=== PATIENT | male | born 1960 | race African-American/Black ===

== ENCOUNTER 2020-06-28 04:10 | Inpatient (IN) | payer MEDICAID, OTHER ==
[~2020-06-28] VITALS: Ht 188 cm; Wt 141.5 kg
[2020-06-28] MEDS ORDERED: ONDANSETRON HCL 4MG/2ML INJ IV STA (04:42)
[2020-06-28] MEDS: PIPERACILLIN/TAZ 3.375G PREMIX 50 ML IV ONE ×2 (04:45→08:18)
[2020-06-28] MEDS ORDERED: HYDRALAZINE 20MG/ML VIAL IV ONE (04:45)
[2020-06-28] MEDS ORDERED: VANCOMYCIN 1 G PREMIX 200 ML IV ONE (04:45)
[2020-06-28] MEDS ORDERED: SODIUM CHLORIDE 0.9% 1000ML BAG (SEPSIS BOLUS) IV ONE (04:45)
[2020-06-28] MEDS ORDERED: PROPOFOL 10MG/ML 100ML 100 ML IV SCH (04:45)
[2020-06-28] MEDS ORDERED: PROPOFOL 200MG/20ML VIAL IV ONE (05:00)
[2020-06-28 05:48] LABS: BG BASE EXCESS -7.3 mmol/L (-2.0-2.0); BG DEOXYHEMOGLOBIN 0.3 % (0.0-5.0); BG FRACTION INSPIRED OXYGEN 100; BG HCO3 ACT 17.3 mmol/L (22.0-26.0); BG METHEMOGLOBIN 0.3 % (0.0-1.5); BG OXYGEN SATURATION 99.7 % (92.0-98.5); BG OXYHEMOGLOBIN 99.4 % (94.0-97.0); BG PCO2 32.3 mmHg (35.0-45.0); BG PH 7.346 (7.350-7.450); BG PO2 502.3 mmHg (75.0-100.0); BG SAMPLE SITE RIGHT RADIAL; BG TIDAL VOLUME(mL) 550 mL; BG TOTAL HEMOGLOBIN 12.6 g/dL (12.0-18.0); BG VENT MODE VENT - A/C; BG VENT RATE 18 set
[2020-06-28 06:41] LABS: CLARITY URINE CLEAR (CLEAR); COLOR URINE YELLOW (YELLOW); KETONES URINE 1+ (NEGATIVE); LEUKOCYTE ESTERASE URINE NEGATIVE (NEGATIVE); NITRITE URINE NEGATIVE (NEGATIVE); OCCULT BLOOD URINE 2+ (NEGATIVE); PROTEIN URINE 4+ (NEGATIVE); SPECIFIC GRAVITY URINE 1.024 (1.005-1.030); UROBILINOGEN URINE 0.2 E.U./dL (0.2-1.0)
[2020-06-28 06:42] LABS: HEMATOCRIT. 39.7 % (42.0-52.0); HEMOGLOBIN. 12.9 g/dL (14.0-18.0); MEAN CORPUSCULAR HEMOGLOBIN 27.4 pg (28.0-32.0); MEAN CORPUSCULAR VOLUME 83.9 fL (80.0-94.0); MEAN PLATELET VOLUME 10.2 fl (7.4-10.4); PLATELET 228 x1000/uL (130-400); RED BLOOD CELL COUNT 4.73 mill/uL (4.7-6.1); RED CELL DISTRIBUTION WIDTH 15.4 % (11.6-14.6)
[2020-06-28 06:47] LABS: CHLORIDE 97 mEq/L (98-107)
[2020-06-28 06:51] LABS: ETHANOL BLOOD < 10 mg/dL
[2020-06-28 06:54] LABS: PROTHROMBIN TIME 10.5 sec (9.6-11.0)
[2020-06-28 06:55] LABS: CREATINE KINASE 414 IU/L (39-308)
[2020-06-28] MEDS ORDERED: ASPIRIN 300MG SUPP PR SCH (07:15)
[2020-06-28] MEDS ORDERED: INSULIN LISPRO 100 UNITS/ML SUBCUT SCH (07:15)
[2020-06-28 07:31] LABS: *COCAINE SCREEN URINE NEGATIVE (NEGATIVE); METHADONE URINE SCREEN NEGATIVE (NEGATIVE)
[2020-06-28 07:32] LABS: *BARBITURATES SCREEN URINE NEGATIVE (NEGATIVE); *BENZODIAZEPINES SCREEN URINE NEGATIVE (NEGATIVE); CANNABINOID URINE SCREEN NEGATIVE (NEGATIVE); OPIATES URINE SCREEN NEGATIVE (NEGATIVE); PHENCYCLIDINE URINE SCREEN NEGATIVE (NEGATIVE)
[2020-06-28 07:33] LABS: *AMPHETAMINES SCREEN URINE NEGATIVE (NEGATIVE)
[2020-06-28] MEDS ORDERED: GUAIFENESIN 200MG/10ML SUGAR FREE UDC PO PRN (08:15)
[2020-06-28] MEDS ORDERED: CLONIDINE 0.1MG TABLET PO PRN (08:15)
[2020-06-28] MEDS ORDERED: DEXTROSE 50% WATER 50ML SYRINGE IV PRN (08:15)
[2020-06-28] MEDS ORDERED: ONDANSETRON HCL 4MG/2ML INJ IV PRN (08:15)
[2020-06-28] MEDS ORDERED: LORAZEPAM 2MG/ML CPJ IV PRN (08:15)
[2020-06-28] MEDS ORDERED: ACETAMINOPHEN 325MG TABLET PO PRN (08:15)
[2020-06-28] MEDS ORDERED: MAGNESIUM/ALUMINUM HYDROXIDE/SIMETHICONE 30ML UDC PO PRN (08:15)
[2020-06-28] MEDS ORDERED: HYDROCODONE/ACETAMINOPHEN 10/325MG TABLET PO PRN (08:15)
[2020-06-28] MEDS ORDERED: MORPHINE SULFATE 2 MG/ML CPJ (NOT FOR IM USE) IV PRN (08:15)
[2020-06-28] MEDS: CEFTRIAXONE 1 G PREMIX 50 ML IV SCH ×2 (08:16→09:49)
[2020-06-28 08:30] LABS: PLATELET ESTIMATE NORMAL
[2020-06-28] MEDS: HYDRALAZINE 20MG/ML VIAL IV PRN (08:37)
[2020-06-28] MEDS: ENOXAPARIN 40MG/0.4ML SYR SUBCUT SCH (08:44)
[2020-06-28] MEDS: BLOOD SUGAR DIAGNOSTIC STRIP TEST SCH ×4 (09:11→21:31)
[2020-06-28] MEDS: INSULIN LISPRO 100 UNITS/ML SUBCUT SCH ×4 (09:15→21:46)
[2020-06-28] MEDS ORDERED: FENTANYL CITRATE/PF 1,000 MCG in SODIUM CHLORIDE 0.9% 80 ML IV PRN (10:45)
[2020-06-28] MEDS: AZITHROMYCIN 500 MG in DEXT 5% WATER 250 ML IV SCH (10:57)
[2020-06-28] MEDS: FENTANYL CITRATE/PF 1,000 MCG in SODIUM CHLORIDE 0.9% 80 ML IV PRN (10:58)
[2020-06-28] MEDS: NICARDIPINE 40MG/200ML PREMIX 200 ML IV PRN ×2 (13:50→18:27)
[2020-06-28] MEDS: SODIUM CHLORIDE 0.9% INJ 3ML FLUSH IVF SCH (14:00)
[2020-06-28 17:09] LABS: PHOSPHORUS 2.5 mg/dL (2.5-4.9)
[2020-06-28 17:28] LABS: HEPATITIS B SURFACE ANTIGEN NEGATIVE
[2020-06-29 04:36] LABS: BASOPHILS % 0.4 % (0.0-2.0); EOSINOPHILS % 0.1 % (0.0-5.0); HEMATOCRIT. 35.9 % (42.0-52.0); HEMOGLOBIN. 11.7 g/dL (14.0-18.0); LYMPHOCYTES % 13.1 % (20.0-50.0); MEAN CORPUSCULAR HEMOGLOBIN 27.4 pg (28.0-32.0); MEAN CORPUSCULAR VOLUME 83.8 fL (80.0-94.0); MONOCYTES % 7.4 % (2.0-8.0); PLATELET 195 x1000/uL (130-400); RED BLOOD CELL COUNT 4.29 mill/uL (4.7-6.1); RED CELL DISTRIBUTION WIDTH 15.5 % (11.6-14.6)
[2020-06-29 04:57] LABS: CHLORIDE 111 mEq/L (98-107)
[2020-06-29 05:10] LABS: CREATINE KINASE 334 IU/L (39-308)
[2020-06-29 05:12] LABS: CREATINE KINASE MB FRACTION 1.6 ng/mL (0.5-3.6)
[2020-06-29] MEDS: HYDRALAZINE 20MG/ML VIAL IV PRN ×2 (05:14→14:24)
[2020-06-29] MEDS: INSULIN LISPRO 100 UNITS/ML SUBCUT SCH ×3 (06:51→16:58)
[2020-06-29] MEDS ORDERED: PROPOFOL 10MG/ML 100ML 100 ML IV ONE ×2 (07:45→07:46)
[2020-06-29] MEDS: SODIUM CHLORIDE 0.9% INJ 3ML FLUSH IVF SCH ×4 (07:59→22:00)
[2020-06-29] MEDS: BLOOD SUGAR DIAGNOSTIC STRIP TEST SCH ×3 (07:59→16:57)
[2020-06-29] MEDS: NICARDIPINE 50 MG in SODIUM CHLORIDE 0.9% 250 ML IV PRN ×4 (08:20→18:21)
[2020-06-29 09:34] LABS: BG BASE EXCESS -6.5 mmol/L (-2.0-2.0); BG CARBOXYHEMOGLOBIN 0.5 % (0.5-1.5); BG DEOXYHEMOGLOBIN 2.7 % (0.0-5.0); BG FRACTION INSPIRED OXYGEN 40; BG HCO3 ACT 17.9 mmol/L (22.0-26.0); BG METHEMOGLOBIN 0.1 % (0.0-1.5); BG OXYGEN SATURATION 97.3 % (92.0-98.5); BG OXYHEMOGLOBIN 96.7 % (94.0-97.0); BG PCO2 32.2 mmHg (35.0-45.0); BG PH 7.363 (7.350-7.450); BG PO2 97.7 mmHg (75.0-100.0); BG SAMPLE SITE RIGHT RADIAL; BG TIDAL VOLUME(mL) 550 mL; BG TOTAL HEMOGLOBIN 12.1 g/dL (12.0-18.0); BG VENT MODE VENT - A/C; BG VENT RATE 18 set
[2020-06-29] MEDS ORDERED: INSULIN GLARGINE UD 100 UNITS/ML SYR SUBCUT SCH ×2 (10:00→21:00)
[2020-06-29] MEDS: METOPROLOL TARTRATE 25MG TABLET PO SCH (10:00)
[2020-06-29] MEDS ORDERED: INSULIN LISPRO 100 UNITS/ML SUBCUT SCH (11:00)
[2020-06-29] MEDS: ENOXAPARIN 40MG/0.4ML SYR SUBCUT SCH (11:18)
[2020-06-29] MEDS: CEFTRIAXONE 1 G PREMIX 50 ML IV SCH (11:18)
[2020-06-29] MEDS: FENTANYL CITRATE/PF 1,000 MCG in SODIUM CHLORIDE 0.9% 80 ML IV PRN (11:29)
[2020-06-29] MEDS: AZITHROMYCIN 500 MG in DEXT 5% WATER 250 ML IV SCH (12:20)
[2020-06-29] MEDS ORDERED: INSULIN REGULAR (HUMULIN R) 300UNITS/3ML SUBCUT SCH (21:00)
[2020-06-30] VITALS (44 sets, daily range): BP systolic 149–212; BP diastolic 59–121
[2020-06-30] MEDS: LORAZEPAM 2MG/ML CPJ IV PRN ×3 (00:27→22:43)
[2020-06-30] MEDS: NICARDIPINE 50 MG in SODIUM CHLORIDE 0.9% 250 ML IV PRN ×5 (02:16→23:35)
[2020-06-30] MEDS: HYDRALAZINE 20MG/ML VIAL IV PRN ×4 (04:31→20:00)
[2020-06-30] MEDS: SODIUM CHLORIDE 0.9% INJ 3ML FLUSH IVF SCH ×3 (06:00→22:00)
[2020-06-30] MEDS: BLOOD SUGAR DIAGNOSTIC STRIP TEST SCH ×3 (06:29→17:30)
[2020-06-30] MEDS: INSULIN LISPRO 100 UNITS/ML SUBCUT SCH ×3 (06:34→17:40)
[2020-06-30] MEDS: METOPROLOL TARTRATE 25MG TABLET PO SCH ×2 (09:00→21:43)
[2020-06-30] MEDS: AZITHROMYCIN 500 MG in DEXT 5% WATER 250 ML IV SCH (09:00)
[2020-06-30 09:28] LABS: BG BASE EXCESS -6.5 mmol/L (-2.0-2.0); BG CARBOXYHEMOGLOBIN 0.3 % (0.5-1.5); BG DEOXYHEMOGLOBIN 5.1 % (0.0-5.0); BG FRACTION INSPIRED OXYGEN 40; BG METHEMOGLOBIN 0.3 % (0.0-1.5); BG OXYGEN SATURATION 94.9 % (92.0-98.5); BG OXYHEMOGLOBIN 94.3 % (94.0-97.0); BG PCO2 32.7 mmHg (35.0-45.0); BG PH 7.359 (7.350-7.450); BG PO2 79.3 mmHg (75.0-100.0); BG SAMPLE SITE RIGHT RADIAL; BG TIDAL VOLUME(mL) 550 mL; BG TOTAL HEMOGLOBIN 12.4 g/dL (12.0-18.0); BG VENT MODE VENT - A/C; BG VENT RATE 14 set
[2020-06-30] MEDS ORDERED: INSULIN GLARGINE UD 100 UNITS/ML SYR SUBCUT SCH (10:00)
[2020-06-30] MEDS: INSULIN GLARGINE UD 100 UNITS/ML SYR SUBCUT SCH ×2 (10:00→23:09)
[2020-06-30] MEDS: CEFTRIAXONE 1 G PREMIX 50 ML IV SCH (10:00)
[2020-06-30] MEDS: FENTANYL CITRATE/PF 1,000 MCG in SODIUM CHLORIDE 0.9% 80 ML IV PRN ×2 (10:33→16:00)
[2020-06-30] MEDS: MIDAZOLAM HCL 100 MG in DEXT 5% WATER 100 ML IV PRN (12:35)
[2020-06-30] MEDS: ENOXAPARIN 40MG/0.4ML SYR SUBCUT SCH (13:13)
[2020-06-30] MEDS: HYDRALAZINE HCL 50MG TABLET PO SCH ×2 (13:49→22:41)
[2020-06-30] MEDS: PANTOPRAZOLE SODIUM 40 MG/VIAL IV SCH (14:22)
[2020-06-30] MEDS: DIPHENHYDRAMINE 50MG/ML VIAL IV PRN (14:36)
[2020-06-30 14:48] LABS: BASOPHILS % 0.4 % (0.0-2.0); HEMATOCRIT. 33.6 % (42.0-52.0); LYMPHOCYTES % 10.8 % (20.0-50.0); MEAN CORPUSCULAR HEMOGLOBIN 27.6 pg (28.0-32.0); MEAN CORPUSCULAR VOLUME 84.3 fL (80.0-94.0); MEAN PLATELET VOLUME 9.8 fl (7.4-10.4); MONOCYTES % 7.7 % (2.0-8.0); NEUTROPHILS % 79.1 % (40.0-76.0); PLATELET 181 x1000/uL (130-400); RED BLOOD CELL COUNT 3.99 mill/uL (4.7-6.1); RED CELL DISTRIBUTION WIDTH 15.7 % (11.6-14.6)
[2020-06-30] MEDS: THIAMINE HCL 100MG TABLET PO SCH (15:15)
[2020-06-30] MEDS: CLONIDINE 0.2MG TABLET PO PRN (17:49)
[2020-06-30] MEDS: ATORVASTATIN CALCIUM 40MG TABLET PO SCH ×2 (21:42→21:49)
[2020-06-30] MEDS: CLONIDINE 0.2MG TABLET NG SCH (23:50)
[2020-07-01] VITALS (91 sets, daily range): BP systolic 130–201; BP diastolic 57–88
[2020-07-01] MEDS: MIDAZOLAM HCL 100 MG in DEXT 5% WATER 100 ML IV PRN ×2 (00:23→12:27)
[2020-07-01] MEDS: INSULIN LISPRO 100 UNITS/ML SUBCUT SCH ×4 (00:58→18:01)
[2020-07-01] MEDS: NICARDIPINE 50 MG in SODIUM CHLORIDE 0.9% 250 ML IV PRN ×3 (03:26→11:00)
[2020-07-01] MEDS: FENTANYL CITRATE/PF 1,000 MCG in SODIUM CHLORIDE 0.9% 80 ML IV PRN ×3 (03:32→23:27)
[2020-07-01] MEDS: SODIUM CHLORIDE 0.9% INJ 3ML FLUSH IVF SCH ×3 (06:00→22:00)
[2020-07-01] MEDS: BLOOD SUGAR DIAGNOSTIC STRIP TEST SCH ×4 (06:00→17:54)
[2020-07-01 06:22] LABS: BASOPHILS % 0.4 % (0.0-2.0); EOSINOPHILS % 3.2 % (0.0-5.0); HEMATOCRIT. 32.3 % (42.0-52.0); HEMOGLOBIN. 10.5 g/dL (14.0-18.0); LYMPHOCYTES % 11.6 % (20.0-50.0); MEAN CORPUSCULAR HEMOGLOBIN 27.6 pg (28.0-32.0); MEAN CORPUSCULAR VOLUME 84.8 fL (80.0-94.0); MEAN PLATELET VOLUME 9.9 fl (7.4-10.4); MONOCYTES % 8.8 % (2.0-8.0); PLATELET 161 x1000/uL (130-400); RED BLOOD CELL COUNT 3.82 mill/uL (4.7-6.1); RED CELL DISTRIBUTION WIDTH 15.7 % (11.6-14.6)
[2020-07-01] MEDS: HYDRALAZINE HCL 50MG TABLET PO SCH (07:16)
[2020-07-01 07:58] LABS: BG BASE EXCESS -5.4 mmol/L (-2.0-2.0); BG CARBOXYHEMOGLOBIN 0.4 % (0.5-1.5); BG DEOXYHEMOGLOBIN 1.9 % (0.0-5.0); BG FRACTION INSPIRED OXYGEN 40; BG HCO3 ACT 20.8 mmol/L (22.0-26.0); BG METHEMOGLOBIN 0.3 % (0.0-1.5); BG OXYGEN SATURATION 98.1 % (92.0-98.5); BG OXYHEMOGLOBIN 97.4 % (94.0-97.0); BG PCO2 42.9 mmHg (35.0-45.0); BG PH 7.304 (7.350-7.450); BG PO2 118.4 mmHg (75.0-100.0); BG SAMPLE SITE RIGHT RADIAL; BG TIDAL VOLUME(mL) 550 mL; BG TOTAL HEMOGLOBIN 15.3 g/dL (12.0-18.0); BG VENT MODE VENT - A/C; BG VENT RATE 14 set
[2020-07-01] MEDS: ENOXAPARIN 40MG/0.4ML SYR SUBCUT SCH (09:23)
[2020-07-01] MEDS: PANTOPRAZOLE SODIUM 40 MG/VIAL IV SCH (09:23)
[2020-07-01] MEDS: THIAMINE HCL 100MG TABLET PO SCH ×2 (09:23→18:01)
[2020-07-01] MEDS: CLONIDINE 0.2MG TABLET NG SCH ×2 (09:24→23:40)
[2020-07-01] MEDS: METOPROLOL TARTRATE 25MG TABLET PO SCH (09:24)
[2020-07-01] MEDS: AMLODIPINE 10MG TABLET PO SCH (10:41)
[2020-07-01] MEDS: HYDRALAZINE 20MG/ML VIAL IV PRN ×2 (10:41→16:55)
[2020-07-01] MEDS: INSULIN GLARGINE UD 100 UNITS/ML SYR SUBCUT SCH ×2 (10:42→22:18)
[2020-07-01] MEDS: AZITHROMYCIN 500 MG in DEXT 5% WATER 250 ML IV SCH (10:49)
[2020-07-01] MEDS: CEFTRIAXONE 1,000 MG in DEXTROSE 5% WATER 50 ML IV SCH (10:49)
[2020-07-01] MEDS ORDERED: FUROSEMIDE 40MG/4ML VIAL IVP NR (11:00)
[2020-07-01] MEDS: CLONIDINE 0.2MG TABLET PO PRN (12:31)
[2020-07-01] MEDS: HYDRALAZINE HCL 100MG TABLET NG SCH ×2 (14:15→22:36)
[2020-07-01 19:09] LABS: ANTI-NUCLEAR ANTIBODIES DIRECT Negative (Negative)
[2020-07-01] MEDS: LABETALOL 5MG/ML SYR 20 MG/4 ML SYRINGE IV PRN (19:16)
[2020-07-01] MEDS: METOPROLOL TARTRATE 50MG TABLET PO SCH (20:14)
[2020-07-01] MEDS: ATORVASTATIN CALCIUM 40MG TABLET PO SCH (20:14)
[2020-07-02] VITALS (62 sets, daily range): BP systolic 115–186; BP diastolic 57–89
[2020-07-02] MEDS: BLOOD SUGAR DIAGNOSTIC STRIP TEST SCH ×4 (00:47→17:48)
[2020-07-02] MEDS: INSULIN LISPRO 100 UNITS/ML SUBCUT SCH ×4 (01:01→18:16)
[2020-07-02] MEDS: SODIUM CHLORIDE 0.9% INJ 3ML FLUSH IVF SCH ×3 (05:20→22:23)
[2020-07-02] MEDS: HYDRALAZINE HCL 100MG TABLET NG SCH ×3 (05:22→22:23)
[2020-07-02] MEDS: CLONIDINE 0.2MG TABLET NG SCH ×3 (05:49→22:23)
[2020-07-02] MEDS: MIDAZOLAM HCL 100 MG in DEXT 5% WATER 100 ML IV PRN (05:59)
[2020-07-02 07:40] LABS: BASOPHILS % 0.6 % (0.0-2.0); EOSINOPHILS % 4.4 % (0.0-5.0); HEMATOCRIT. 33.7 % (42.0-52.0); HEMOGLOBIN. 10.7 g/dL (14.0-18.0); LYMPHOCYTES % 19.5 % (20.0-50.0); MEAN CORPUSCULAR VOLUME 84.9 fL (80.0-94.0); MONOCYTES % 9.6 % (2.0-8.0); NEUTROPHILS % 65.9 % (40.0-76.0); PLATELET 179 x1000/uL (130-400); RED BLOOD CELL COUNT 3.97 mill/uL (4.7-6.1); RED CELL DISTRIBUTION WIDTH 16.1 % (11.6-14.6)
[2020-07-02 07:45] LABS: PHOSPHORUS 5.5 mg/dL (2.5-4.9)
[2020-07-02 08:09] LABS: BG BASE EXCESS -2.8 mmol/L (-2.0-2.0); BG CARBOXYHEMOGLOBIN 0.3 % (0.5-1.5); BG DEOXYHEMOGLOBIN 3.7 % (0.0-5.0); BG FRACTION INSPIRED OXYGEN 40; BG METHEMOGLOBIN 0.1 % (0.0-1.5); BG OXYGEN SATURATION 96.3 % (92.0-98.5); BG OXYHEMOGLOBIN 95.9 % (94.0-97.0); BG PCO2 37.7 mmHg (35.0-45.0); BG PH 7.383 (7.350-7.450); BG PO2 88.6 mmHg (75.0-100.0); BG SAMPLE SITE RIGHT RADIAL; BG TIDAL VOLUME(mL) 550 mL; BG TOTAL HEMOGLOBIN 10.7 g/dL (12.0-18.0); BG VENT MODE VENT - A/C; BG VENT RATE 16 set
[2020-07-02] MEDS: ENOXAPARIN 40MG/0.4ML SYR SUBCUT SCH (09:14)
[2020-07-02] MEDS: AZITHROMYCIN 500 MG in DEXT 5% WATER 250 ML IV SCH (09:14)
[2020-07-02] MEDS: PANTOPRAZOLE SODIUM 40 MG/VIAL IV SCH (09:15)
[2020-07-02] MEDS: THIAMINE HCL 100MG TABLET PO SCH ×2 (09:15→17:01)
[2020-07-02] MEDS: AMLODIPINE 10MG TABLET PO SCH (09:15)
[2020-07-02] MEDS: METOPROLOL TARTRATE 50MG TABLET PO SCH ×2 (09:15→20:15)
[2020-07-02] MEDS ORDERED: LACTULOSE 20G/30ML UDC PO PRN (09:30)
[2020-07-02] MEDS ORDERED: BISACODYL 10MG SUPP PR PRN (09:30)
[2020-07-02] MEDS ORDERED: LACTULOSE 20G/30ML UDC PO NR (09:30)
[2020-07-02] MEDS: CEFTRIAXONE 1,000 MG in DEXTROSE 5% WATER 50 ML IV SCH (09:48)
[2020-07-02] MEDS: INSULIN GLARGINE UD 100 UNITS/ML SYR SUBCUT SCH ×2 (09:48→22:24)
[2020-07-02] MEDS: METOCLOPRAMIDE HCL 10MG/2ML VIAL IV SCH ×2 (11:46→17:00)
[2020-07-02] MEDS: CALCIUM ACETATE 667MG CAPSULE PO SCH ×3 (11:46→17:48)
[2020-07-02] MEDS: LABETALOL 5MG/ML SYR 20 MG/4 ML SYRINGE IV PRN ×2 (12:10→20:20)
[2020-07-02] MEDS: IPRATROPIUM/ALBUTEROL 0.5-3(2.5)MG/3ML NEB HHN PRN ×3 (12:17→16:31)
[2020-07-02 13:08] LABS: BG CARBOXYHEMOGLOBIN 0.3 % (0.5-1.5); BG DEOXYHEMOGLOBIN 4.9 % (0.0-5.0); BG FRACTION INSPIRED OXYGEN 40; BG HCO3 ACT 21.6 mmol/L (22.0-26.0); BG METHEMOGLOBIN 0.3 % (0.0-1.5); BG OXYGEN SATURATION 95.1 % (92.0-98.5); BG OXYHEMOGLOBIN 94.5 % (94.0-97.0); BG PCO2 36.6 mmHg (35.0-45.0); BG PH 7.388 (7.350-7.450); BG PO2 77.7 mmHg (75.0-100.0); BG PRESSURE SUPPORT 8; BG SAMPLE SITE RIGHT RADIAL; BG TOTAL HEMOGLOBIN 11.2 g/dL (12.0-18.0); BG VENT MODE VENT - CPAP
[2020-07-02] MEDS: HYDRALAZINE 20MG/ML VIAL IV PRN (15:27)
[2020-07-02] MEDS ORDERED: RACEPINEPHRINE 2.25% 0.5ML NEB VIAL HHN PRN (16:45)
[2020-07-02] MEDS: CLONIDINE 0.2MG TABLET PO PRN (16:57)
[2020-07-02] MEDS: ATORVASTATIN CALCIUM 40MG TABLET PO SCH (20:19)
[2020-07-03] VITALS (36 sets, daily range): BP systolic 138–201; BP diastolic 44–137
[2020-07-03] MEDS: METOCLOPRAMIDE HCL 10MG/2ML VIAL IV SCH ×4 (00:30→17:15)
[2020-07-03] MEDS: LABETALOL 5MG/ML SYR 20 MG/4 ML SYRINGE IV PRN ×2 (00:30→04:33)
[2020-07-03] MEDS: HYDRALAZINE 20MG/ML VIAL IV PRN ×3 (00:31→17:36)
[2020-07-03] MEDS: BLOOD SUGAR DIAGNOSTIC STRIP TEST SCH ×4 (00:31→17:26)
[2020-07-03] MEDS: INSULIN LISPRO 100 UNITS/ML SUBCUT SCH ×4 (00:31→17:37)
[2020-07-03] MEDS: CLONIDINE 0.2MG TABLET NG SCH ×3 (04:33→22:07)
[2020-07-03 05:56] LABS: BASOPHILS % 0.4 % (0.0-2.0); EOSINOPHILS % 3.4 % (0.0-5.0); HEMATOCRIT. 33.2 % (42.0-52.0); HEMOGLOBIN. 10.7 g/dL (14.0-18.0); MEAN CORPUSCULAR HEMOGLOBIN 27.5 pg (28.0-32.0); MEAN CORPUSCULAR VOLUME 84.9 fL (80.0-94.0); MEAN PLATELET VOLUME 9.6 fl (7.4-10.4); MONOCYTES % 9.4 % (2.0-8.0); NEUTROPHILS % 69.8 % (40.0-76.0); PLATELET 201 x1000/uL (130-400); RED BLOOD CELL COUNT 3.91 mill/uL (4.7-6.1); RED CELL DISTRIBUTION WIDTH 15.7 % (11.6-14.6)
[2020-07-03] MEDS: SODIUM CHLORIDE 0.9% INJ 3ML FLUSH IVF SCH ×3 (06:29→22:10)
[2020-07-03] MEDS: HYDRALAZINE HCL 100MG TABLET NG SCH ×3 (06:36→22:07)
[2020-07-03] MEDS: CLONIDINE 0.2MG TABLET PO PRN (06:38)
[2020-07-03] MEDS: PANTOPRAZOLE SODIUM 40 MG/VIAL IV SCH (08:17)
[2020-07-03] MEDS: ENOXAPARIN 40MG/0.4ML SYR SUBCUT SCH (08:17)
[2020-07-03] MEDS: CALCIUM ACETATE 667MG CAPSULE PO SCH ×3 (08:20→17:15)
[2020-07-03] MEDS: AMLODIPINE 10MG TABLET PO SCH (09:31)
[2020-07-03] MEDS: THIAMINE HCL 100MG TABLET PO SCH ×2 (09:31→17:15)
[2020-07-03] MEDS: METOPROLOL TARTRATE 50MG TABLET PO SCH ×2 (09:31→21:58)
[2020-07-03] MEDS: LORAZEPAM 2MG/ML CPJ IV PRN ×3 (10:11→20:35)
[2020-07-03] MEDS: IPRATROPIUM/ALBUTEROL 0.5-3(2.5)MG/3ML NEB HHN PRN (10:20)
[2020-07-03] MEDS: INSULIN GLARGINE UD 100 UNITS/ML SYR SUBCUT SCH ×2 (10:33→22:28)
[2020-07-03] MEDS: DEXTROSE 5% WATER 1,000 ML IV SCH (11:17)
[2020-07-03] MEDS: ATORVASTATIN CALCIUM 40MG TABLET PO SCH (21:58)
[2020-07-04] VITALS (12 sets, daily range): BP systolic 157–192; BP diastolic 77–112
[2020-07-04] MEDS: BLOOD SUGAR DIAGNOSTIC STRIP TEST SCH ×5 (00:04→22:49)
[2020-07-04] MEDS: METOCLOPRAMIDE HCL 10MG/2ML VIAL IV SCH ×5 (00:18→23:14)
[2020-07-04] MEDS: HYDRALAZINE 20MG/ML VIAL IV PRN (00:19)
[2020-07-04] MEDS: INSULIN LISPRO 100 UNITS/ML SUBCUT SCH ×5 (00:29→23:16)
[2020-07-04] MEDS: DIPHENHYDRAMINE 50MG/ML VIAL IV PRN (03:27)
[2020-07-04] MEDS: DEXTROSE 5% WATER 1,000 ML IV SCH (05:31)
[2020-07-04] MEDS: HYDRALAZINE HCL 100MG TABLET NG SCH ×3 (05:32→23:08)
[2020-07-04] MEDS: CLONIDINE 0.2MG TABLET NG SCH ×3 (05:32→23:09)
[2020-07-04] MEDS: SODIUM CHLORIDE 0.9% INJ 3ML FLUSH IVF SCH ×3 (05:33→23:08)
[2020-07-04 07:37] LABS: BASOPHILS % 0.5 % (0.0-2.0); EOSINOPHILS % 4.8 % (0.0-5.0); HEMOGLOBIN. 10.8 g/dL (14.0-18.0); LYMPHOCYTES % 20.2 % (20.0-50.0); MEAN CORPUSCULAR HEMOGLOBIN 27.6 pg (28.0-32.0); MEAN CORPUSCULAR VOLUME 84.3 fL (80.0-94.0); MEAN PLATELET VOLUME 9.6 fl (7.4-10.4); MONOCYTES % 9.2 % (2.0-8.0); NEUTROPHILS % 65.3 % (40.0-76.0); PLATELET 214 x1000/uL (130-400); RED BLOOD CELL COUNT 3.92 mill/uL (4.7-6.1); RED CELL DISTRIBUTION WIDTH 15.2 % (11.6-14.6)
[2020-07-04] MEDS: BACITRACIN 15GM TUBE TOP SCH (09:00)
[2020-07-04] MEDS ORDERED: DEXTROSE 5% WATER 1,000 ML IV SCH (09:45)
[2020-07-04] MEDS: CALCIUM ACETATE 667MG CAPSULE PO SCH ×3 (09:50→17:18)
[2020-07-04] MEDS: THIAMINE HCL 100MG TABLET PO SCH ×2 (09:50→17:17)
[2020-07-04] MEDS: PANTOPRAZOLE SODIUM 40 MG/VIAL IV SCH (09:51)
[2020-07-04] MEDS: ENOXAPARIN 40MG/0.4ML SYR SUBCUT SCH (09:52)
[2020-07-04] MEDS: INSULIN GLARGINE UD 100 UNITS/ML SYR SUBCUT SCH ×2 (09:55→22:58)
[2020-07-04] MEDS: METOPROLOL TARTRATE 50MG TABLET PO SCH ×2 (09:56→23:07)
[2020-07-04] MEDS: AMLODIPINE 10MG TABLET PO SCH (09:57)
[2020-07-04] MEDS: LORAZEPAM 2MG/ML CPJ IV PRN ×2 (10:07→20:35)
[2020-07-04] MEDS: ATORVASTATIN CALCIUM 40MG TABLET PO SCH (23:06)
[2020-07-05] VITALS (12 sets, daily range): BP systolic 140–181; BP diastolic 83–101
[2020-07-05] MEDS: HYDRALAZINE 20MG/ML VIAL IV PRN (02:30)
[2020-07-05] MEDS: DIPHENHYDRAMINE 50MG/ML VIAL IV PRN (03:16)
[2020-07-05] MEDS ORDERED: LORAZEPAM 2MG/ML CPJ IV PRN ×2 (03:30→14:45)
[2020-07-05] MEDS: BLOOD SUGAR DIAGNOSTIC STRIP TEST SCH ×4 (06:18→23:31)
[2020-07-05] MEDS: INSULIN LISPRO 100 UNITS/ML SUBCUT SCH ×4 (06:25→23:31)
[2020-07-05] MEDS: METOCLOPRAMIDE HCL 10MG/2ML VIAL IV SCH ×4 (06:27→23:31)
[2020-07-05] MEDS: SODIUM CHLORIDE 0.9% INJ 3ML FLUSH IVF SCH ×3 (06:27→21:48)
[2020-07-05] MEDS: CLONIDINE 0.2MG TABLET NG SCH ×3 (06:28→21:48)
[2020-07-05] MEDS: HYDRALAZINE HCL 100MG TABLET NG SCH ×3 (06:28→21:48)
[2020-07-05 07:36] LABS: HEMATOCRIT 36.7 % (42.0-52.0); HEMOGLOBIN 11.8 g/dL (14.0-18.0); MEAN CORPUSCULAR HEMOGLOBIN 27.6 pg (28.0-32.0); MEAN CORPUSCULAR VOLUME 85.7 fL (80.0-94.0); PLATELET 233 x1000/uL (130-400); RED BLOOD CELL COUNT 4.28 mill/uL (4.7-6.1); RED CELL DISTRIBUTION WIDTH 15.5 % (11.6-14.6)
[2020-07-05] MEDS: ENOXAPARIN 40MG/0.4ML SYR SUBCUT SCH (08:49)
[2020-07-05] MEDS: THIAMINE HCL 100MG TABLET PO SCH ×2 (08:50→16:32)
[2020-07-05] MEDS: FAMOTIDINE 20MG/2ML VIAL IV SCH (08:50)
[2020-07-05] MEDS: METOPROLOL TARTRATE 50MG TABLET PO SCH ×2 (08:50→21:25)
[2020-07-05] MEDS: AMLODIPINE 10MG TABLET PO SCH (08:50)
[2020-07-05] MEDS: CALCIUM ACETATE 667MG CAPSULE PO SCH ×3 (08:50→16:32)
[2020-07-05] MEDS: DOXAZOSIN MESYLATE 2MG TABLET PO SCH ×2 (08:51→16:32)
[2020-07-05] MEDS: BACITRACIN 15GM TUBE TOP SCH (08:51)
[2020-07-05 09:09] LABS: CHLORIDE 126 mEq/L (98-107)
[2020-07-05] MEDS: INSULIN GLARGINE UD 100 UNITS/ML SYR SUBCUT SCH ×2 (10:19→21:41)
[2020-07-05] MEDS: ATORVASTATIN CALCIUM 40MG TABLET PO SCH (21:25)
[2020-07-06] VITALS (11 sets, daily range): BP systolic 134–162; BP diastolic 75–93
[2020-07-06] MEDS: METOCLOPRAMIDE HCL 10MG/2ML VIAL IV SCH ×4 (06:00→23:56)
[2020-07-06] MEDS: CLONIDINE 0.2MG TABLET NG SCH ×3 (06:00→22:30)
[2020-07-06] MEDS: HYDRALAZINE HCL 100MG TABLET NG SCH ×3 (06:00→22:30)
[2020-07-06] MEDS: BLOOD SUGAR DIAGNOSTIC STRIP TEST SCH ×4 (06:01→23:56)
[2020-07-06] MEDS: INSULIN LISPRO 100 UNITS/ML SUBCUT SCH ×4 (06:04→23:56)
[2020-07-06] MEDS: SODIUM CHLORIDE 0.9% INJ 3ML FLUSH IVF SCH ×3 (06:05→22:30)
[2020-07-06 07:14] LABS: BASOPHILS % 0.5 % (0.0-2.0); EOSINOPHILS % 3.6 % (0.0-5.0); HEMATOCRIT. 34.4 % (42.0-52.0); HEMOGLOBIN. 10.9 g/dL (14.0-18.0); LYMPHOCYTES % 27.9 % (20.0-50.0); MEAN CORPUSCULAR HEMOGLOBIN 26.8 pg (28.0-32.0); MEAN CORPUSCULAR VOLUME 84.5 fL (80.0-94.0); MEAN PLATELET VOLUME 9.4 fl (7.4-10.4); MONOCYTES % 11.7 % (2.0-8.0); NEUTROPHILS % 56.3 % (40.0-76.0); PLATELET 225 x1000/uL (130-400); RED BLOOD CELL COUNT 4.06 mill/uL (4.7-6.1); RED CELL DISTRIBUTION WIDTH 15.4 % (11.6-14.6)
[2020-07-06 07:42] LABS: PHOSPHORUS 3.3 mg/dL (2.5-4.9)
[2020-07-06] MEDS: INSULIN GLARGINE UD 100 UNITS/ML SYR SUBCUT SCH ×2 (09:21→21:38)
[2020-07-06] MEDS: FAMOTIDINE 20MG/2ML VIAL IV SCH (09:22)
[2020-07-06] MEDS: CALCIUM ACETATE 667MG CAPSULE PO SCH ×3 (09:22→17:23)
[2020-07-06] MEDS: ENOXAPARIN 40MG/0.4ML SYR SUBCUT SCH (09:22)
[2020-07-06] MEDS: THIAMINE HCL 100MG TABLET PO SCH ×2 (09:23→17:24)
[2020-07-06] MEDS: DOXAZOSIN MESYLATE 2MG TABLET PO SCH ×2 (09:23→17:24)
[2020-07-06] MEDS: METOPROLOL TARTRATE 50MG TABLET PO SCH ×2 (09:23→21:27)
[2020-07-06] MEDS: AMLODIPINE 10MG TABLET PO SCH (09:23)
[2020-07-06] MEDS: BACITRACIN 15GM TUBE TOP SCH (09:24)
[2020-07-06] MEDS: DEXTROSE 5% WATER 1,000 ML IV SCH (10:52)
[2020-07-06] MEDS ORDERED: INSULIN GLARGINE UD 100 UNITS/ML SYR SUBCUT NR (11:00)
[2020-07-06] MEDS: DOCUSATE SODIUM SUGAR FREE 100MG/10ML UDC NG SCH (12:45)
[2020-07-06] MEDS ORDERED: LACTULOSE 20G/30ML UDC PO NR (12:45)
[2020-07-06] MEDS: ATORVASTATIN CALCIUM 40MG TABLET PO SCH (21:26)
[2020-07-07] VITALS (12 sets, daily range): BP systolic 138–170; BP diastolic 65–91
[2020-07-07] MEDS: DEXTROSE 5% WATER 1,000 ML IV SCH (02:06)
[2020-07-07] MEDS: HYDRALAZINE HCL 100MG TABLET NG SCH ×3 (06:13→22:00)
[2020-07-07] MEDS: INSULIN LISPRO 100 UNITS/ML SUBCUT SCH ×4 (06:14→22:02)
[2020-07-07] MEDS: CLONIDINE 0.2MG TABLET NG SCH ×3 (06:14→22:00)
[2020-07-07] MEDS: BLOOD SUGAR DIAGNOSTIC STRIP TEST SCH ×4 (06:15→22:04)
[2020-07-07] MEDS: SODIUM CHLORIDE 0.9% INJ 3ML FLUSH IVF SCH ×3 (06:15→22:06)
[2020-07-07] MEDS: METOCLOPRAMIDE HCL 10MG/2ML VIAL IV SCH ×3 (06:15→17:54)
[2020-07-07 07:07] LABS: BASOPHILS % 0.5 % (0.0-2.0); EOSINOPHILS % 3.9 % (0.0-5.0); HEMATOCRIT. 32.7 % (42.0-52.0); HEMOGLOBIN. 10.2 g/dL (14.0-18.0); LYMPHOCYTES % 25.1 % (20.0-50.0); MEAN CORPUSCULAR HEMOGLOBIN 26.8 pg (28.0-32.0); MEAN CORPUSCULAR VOLUME 85.6 fL (80.0-94.0); MEAN PLATELET VOLUME 9.7 fl (7.4-10.4); MONOCYTES % 12.1 % (2.0-8.0); NEUTROPHILS % 58.4 % (40.0-76.0); PLATELET 204 x1000/uL (130-400); RED BLOOD CELL COUNT 3.82 mill/uL (4.7-6.1); RED CELL DISTRIBUTION WIDTH 15.5 % (11.6-14.6)
[2020-07-07] MEDS: DOCUSATE SODIUM SUGAR FREE 100MG/10ML UDC NG SCH (09:00)
[2020-07-07] MEDS: LACTULOSE 20G/30ML UDC PO SCH (09:00)
[2020-07-07] MEDS: CALCIUM ACETATE 667MG CAPSULE PO SCH ×3 (09:50→17:54)
[2020-07-07] MEDS: ENOXAPARIN 40MG/0.4ML SYR SUBCUT SCH (09:51)
[2020-07-07] MEDS: THIAMINE HCL 100MG TABLET PO SCH ×2 (09:51→17:55)
[2020-07-07] MEDS: FAMOTIDINE 20MG/2ML VIAL IV SCH (09:51)
[2020-07-07] MEDS: AMLODIPINE 10MG TABLET PO SCH (09:51)
[2020-07-07] MEDS: DOXAZOSIN MESYLATE 2MG TABLET PO SCH ×2 (09:51→17:54)
[2020-07-07] MEDS: INSULIN GLARGINE UD 100 UNITS/ML SYR SUBCUT SCH ×2 (09:52→22:01)
[2020-07-07] MEDS: BACITRACIN 15GM TUBE TOP SCH (09:52)
[2020-07-07] MEDS: METOPROLOL TARTRATE 50MG TABLET PO SCH ×2 (09:54→21:19)
[2020-07-07] MEDS: SODIUM CHLORIDE 0.45% 1,000 ML IV SCH (15:36)
[2020-07-07] MEDS: ATORVASTATIN CALCIUM 40MG TABLET PO SCH (21:17)
[2020-07-08] VITALS (12 sets, daily range): BP systolic 133–163; BP diastolic 67–84
[2020-07-08] MEDS: METOCLOPRAMIDE HCL 10MG/2ML VIAL IV SCH ×4 (00:29→18:00)
[2020-07-08] MEDS: SODIUM CHLORIDE 0.45% 1,000 ML IV SCH ×2 (05:45→19:03)
[2020-07-08] MEDS: HYDRALAZINE HCL 100MG TABLET NG SCH ×3 (06:23→22:11)
[2020-07-08] MEDS: SODIUM CHLORIDE 0.9% INJ 3ML FLUSH IVF SCH ×3 (06:23→21:56)
[2020-07-08] MEDS: BLOOD SUGAR DIAGNOSTIC STRIP TEST SCH ×4 (06:24→21:57)
[2020-07-08] MEDS: CLONIDINE 0.2MG TABLET NG SCH ×3 (06:24→22:11)
[2020-07-08] MEDS: INSULIN LISPRO 100 UNITS/ML SUBCUT SCH ×4 (06:33→21:54)
[2020-07-08] MEDS: DOCUSATE SODIUM SUGAR FREE 100MG/10ML UDC NG SCH (08:52)
[2020-07-08] MEDS: CALCIUM ACETATE 667MG CAPSULE PO SCH ×3 (08:52→17:20)
[2020-07-08] MEDS: LACTULOSE 20G/30ML UDC PO SCH (08:52)
[2020-07-08] MEDS: DOXAZOSIN MESYLATE 2MG TABLET PO SCH ×2 (08:56→17:00)
[2020-07-08] MEDS: BACITRACIN 15GM TUBE TOP SCH (08:57)
[2020-07-08] MEDS: ENOXAPARIN 40MG/0.4ML SYR SUBCUT SCH (08:57)
[2020-07-08] MEDS: THIAMINE HCL 100MG TABLET PO SCH ×2 (08:57→17:00)
[2020-07-08] MEDS: FAMOTIDINE 20MG/2ML VIAL IV SCH (08:58)
[2020-07-08] MEDS: AMLODIPINE 10MG TABLET PO SCH (09:00)
[2020-07-08] MEDS: METOPROLOL TARTRATE 50MG TABLET PO SCH ×2 (12:06→21:50)
[2020-07-08] MEDS: INSULIN GLARGINE UD 100 UNITS/ML SYR SUBCUT SCH ×2 (12:08→21:53)
[2020-07-08] MEDS: ATORVASTATIN CALCIUM 40MG TABLET PO SCH (21:50)
[2020-07-09] VITALS (13 sets, daily range): BP systolic 119–163; BP diastolic 46–79
[2020-07-09] MEDS: METOCLOPRAMIDE HCL 10MG/2ML VIAL IV SCH ×4 (01:04→19:03)
[2020-07-09] MEDS: BLOOD SUGAR DIAGNOSTIC STRIP TEST SCH ×4 (05:36→21:36)
[2020-07-09] MEDS: INSULIN LISPRO 100 UNITS/ML SUBCUT SCH ×3 (05:36→18:00)
[2020-07-09] MEDS: SODIUM CHLORIDE 0.9% INJ 3ML FLUSH IVF SCH ×3 (05:41→21:51)
[2020-07-09] MEDS: CLONIDINE 0.2MG TABLET NG SCH ×3 (05:42→21:50)
[2020-07-09] MEDS: HYDRALAZINE HCL 100MG TABLET NG SCH ×3 (05:42→21:49)
[2020-07-09 07:01] LABS: BASOPHILS % 0.5 % (0.0-2.0); EOSINOPHILS % 5.1 % (0.0-5.0); HEMATOCRIT. 32.6 % (42.0-52.0); HEMOGLOBIN. 10.6 g/dL (14.0-18.0); LYMPHOCYTES % 35.1 % (20.0-50.0); MEAN CORPUSCULAR HEMOGLOBIN 27.1 pg (28.0-32.0); MEAN CORPUSCULAR VOLUME 83.6 fL (80.0-94.0); MONOCYTES % 6.2 % (2.0-8.0); NEUTROPHILS % 53.1 % (40.0-76.0); PLATELET 180 x1000/uL (130-400); RED CELL DISTRIBUTION WIDTH 14.7 % (11.6-14.6)
[2020-07-09] MEDS: SODIUM CHLORIDE 0.45% 1,000 ML IV SCH ×2 (09:19→21:48)
[2020-07-09] MEDS: DOCUSATE SODIUM SUGAR FREE 100MG/10ML UDC NG SCH (09:20)
[2020-07-09] MEDS: FAMOTIDINE 20MG/2ML VIAL IV SCH (09:20)
[2020-07-09] MEDS: LACTULOSE 20G/30ML UDC PO SCH (09:20)
[2020-07-09] MEDS: ENOXAPARIN 40MG/0.4ML SYR SUBCUT SCH (09:20)
[2020-07-09] MEDS: CALCIUM ACETATE 667MG CAPSULE PO SCH ×3 (09:21→19:02)
[2020-07-09] MEDS: DOCUSATE SODIUM 100MG CAPSULE PO PRN (09:22)
[2020-07-09] MEDS: THIAMINE HCL 100MG TABLET PO SCH ×2 (09:22→19:02)
[2020-07-09] MEDS: METOPROLOL TARTRATE 50MG TABLET PO SCH ×2 (09:22→21:49)
[2020-07-09] MEDS: AMLODIPINE 10MG TABLET PO SCH (09:22)
[2020-07-09] MEDS: BACITRACIN 15GM TUBE TOP SCH (09:23)
[2020-07-09] MEDS: DOXAZOSIN MESYLATE 2MG TABLET PO SCH ×2 (09:23→19:03)
[2020-07-09] MEDS: INSULIN GLARGINE UD 100 UNITS/ML SYR SUBCUT SCH ×2 (10:43→21:51)
[2020-07-09] MEDS: ATORVASTATIN CALCIUM 40MG TABLET PO SCH (21:48)
[2020-07-10] VITALS (7 sets, daily range): BP systolic 90–172; BP diastolic 60–84
[2020-07-10] MEDS: METOCLOPRAMIDE HCL 10MG/2ML VIAL IV SCH ×4 (06:00→18:11)
[2020-07-10] MEDS: BLOOD SUGAR DIAGNOSTIC STRIP TEST SCH ×3 (06:00→18:23)
[2020-07-10] MEDS: INSULIN LISPRO 100 UNITS/ML SUBCUT SCH ×4 (06:00→18:12)
[2020-07-10] MEDS: HYDRALAZINE HCL 100MG TABLET NG SCH (06:00)
[2020-07-10] MEDS: SODIUM CHLORIDE 0.9% INJ 3ML FLUSH IVF SCH ×3 (06:00→22:22)
[2020-07-10] MEDS: CLONIDINE 0.2MG TABLET NG SCH (06:00)
[2020-07-10] MEDS ORDERED: POTASSIUM CHLORIDE 20MEQ/PACKET PO SCH (09:15)
[2020-07-10 09:30] LABS: PHOSPHORUS 3.3 mg/dL (2.5-4.9)
[2020-07-10] MEDS: AMLODIPINE 10MG TABLET PO SCH (10:09)
[2020-07-10] MEDS: METOPROLOL TARTRATE 50MG TABLET PO SCH ×2 (10:09→21:11)
[2020-07-10] MEDS: THIAMINE HCL 100MG TABLET PO SCH ×2 (10:09→18:11)
[2020-07-10] MEDS: LACTULOSE 20G/30ML UDC PO SCH (10:09)
[2020-07-10] MEDS: BACITRACIN 15GM TUBE TOP SCH (10:10)
[2020-07-10] MEDS: DOCUSATE SODIUM SUGAR FREE 100MG/10ML UDC NG SCH (10:11)
[2020-07-10] MEDS: DOCUSATE SODIUM 100MG CAPSULE PO PRN (10:11)
[2020-07-10] MEDS: CALCIUM ACETATE 667MG CAPSULE PO SCH ×3 (10:11→18:11)
[2020-07-10] MEDS: ENOXAPARIN 40MG/0.4ML SYR SUBCUT SCH (10:11)
[2020-07-10] MEDS: FAMOTIDINE 20MG TABLET PO SCH (10:11)
[2020-07-10] MEDS: DOXAZOSIN MESYLATE 2MG TABLET PO SCH ×2 (10:12→16:07)
[2020-07-10] MEDS: INSULIN GLARGINE UD 100 UNITS/ML SYR SUBCUT SCH (10:13)
[2020-07-10] MEDS: HYDRALAZINE 20MG/ML VIAL IV PRN (11:23)
[2020-07-10] MEDS: CLONIDINE 0.2MG TABLET PO SCH ×2 (14:00→21:12)
[2020-07-10] MEDS: HYDRALAZINE HCL 100MG TABLET PO SCH ×2 (14:00→21:12)
[2020-07-10] MEDS: ATORVASTATIN CALCIUM 40MG TABLET PO SCH (21:10)
[2020-07-10] MEDS: MIRTAZAPINE 15MG TABLET PO SCH (21:11)
[2020-07-11] VITALS: BP 113/59
[2020-07-11] MEDS: METOCLOPRAMIDE HCL 10MG/2ML VIAL IV SCH ×4 (00:16→17:25)
[2020-07-11] MEDS: BLOOD SUGAR DIAGNOSTIC STRIP TEST SCH ×4 (00:17→17:40)
[2020-07-11] MEDS: INSULIN GLARGINE UD 100 UNITS/ML SYR SUBCUT SCH ×4 (01:10→21:29)
[2020-07-11 04:00] VITALS: BP 168/86
[2020-07-11] MEDS: CLONIDINE 0.2MG TABLET PO SCH ×3 (05:47→21:29)
[2020-07-11] MEDS: HYDRALAZINE HCL 100MG TABLET PO SCH ×3 (05:47→21:29)
[2020-07-11] MEDS: SODIUM CHLORIDE 0.9% INJ 3ML FLUSH IVF SCH ×3 (05:47→21:29)
[2020-07-11] MEDS: SODIUM CHLORIDE 0.45% 1,000 ML IV SCH (05:49)
[2020-07-11] MEDS: INSULIN LISPRO 100 UNITS/ML SUBCUT SCH ×4 (06:00→17:40)
[2020-07-11 08:00] VITALS: BP 134/70
[2020-07-11] MEDS: DOXAZOSIN MESYLATE 2MG TABLET PO SCH ×2 (09:00→17:26)
[2020-07-11] MEDS: BACITRACIN 15GM TUBE TOP SCH (09:00)
[2020-07-11] MEDS: DOCUSATE SODIUM SUGAR FREE 100MG/10ML UDC NG SCH (09:00)
[2020-07-11] MEDS: LACTULOSE 20G/30ML UDC PO SCH (09:00)
[2020-07-11] MEDS: ENOXAPARIN 30MG/0.3ML SYR SUBCUT SCH ×3 (09:00→21:30)
[2020-07-11] MEDS: THIAMINE HCL 100MG TABLET PO SCH ×2 (09:27→17:29)
[2020-07-11] MEDS: AMLODIPINE 10MG TABLET PO SCH (09:27)
[2020-07-11] MEDS: METOPROLOL TARTRATE 50MG TABLET PO SCH ×2 (09:27→21:28)
[2020-07-11] MEDS: DOCUSATE SODIUM 100MG CAPSULE PO PRN ×2 (09:27→09:39)
[2020-07-11] MEDS: FAMOTIDINE 20MG TABLET PO SCH (09:28)
[2020-07-11] MEDS: CALCIUM ACETATE 667MG CAPSULE PO SCH ×3 (09:28→17:25)
[2020-07-11 09:38] LABS: PHOSPHORUS 2.7 mg/dL (2.5-4.9)
[2020-07-11] MEDS ORDERED: POTASSIUM CHLORIDE 20MEQ TABLET SR PO SCH (10:30)
[2020-07-11 11:06] LABS: BASOPHILS % 0.7 % (0.0-2.0); EOSINOPHILS % 3.8 % (0.0-5.0); HEMATOCRIT. 29.4 % (42.0-52.0); HEMOGLOBIN. 9.6 g/dL (14.0-18.0); LYMPHOCYTES % 17.2 % (20.0-50.0); MEAN CORPUSCULAR HEMOGLOBIN 27.3 pg (28.0-32.0); MEAN CORPUSCULAR VOLUME 83.6 fL (80.0-94.0); MEAN PLATELET VOLUME 10.3 fl (7.4-10.4); MONOCYTES % 5.7 % (2.0-8.0); NEUTROPHILS % 72.6 % (40.0-76.0); PLATELET 164 x1000/uL (130-400); RED BLOOD CELL COUNT 3.52 mill/uL (4.7-6.1); RED CELL DISTRIBUTION WIDTH 14.5 % (11.6-14.6)
[2020-07-11 12:22] VITALS: BP 106/62
[2020-07-11 16:16] VITALS: BP 153/69
[2020-07-11 20:00] VITALS: BP 162/81
[2020-07-11] MEDS: ATORVASTATIN CALCIUM 40MG TABLET PO SCH (21:29)
[2020-07-11] MEDS: MIRTAZAPINE 15MG TABLET PO SCH (21:29)
[2020-07-12] VITALS: BP 162/75
[2020-07-12] MEDS: METOCLOPRAMIDE HCL 10MG/2ML VIAL IV SCH ×4 (00:27→18:42)
[2020-07-12] MEDS: BLOOD SUGAR DIAGNOSTIC STRIP TEST SCH ×4 (00:28→18:35)
[2020-07-12] MEDS: INSULIN LISPRO 100 UNITS/ML SUBCUT SCH ×4 (00:28→18:41)
[2020-07-12] MEDS: SODIUM CHLORIDE 0.45% 1,000 ML IV SCH ×2 (02:39→22:35)
[2020-07-12 04:00] VITALS: BP 122/57
[2020-07-12] MEDS: CLONIDINE 0.2MG TABLET PO SCH ×3 (06:15→21:42)
[2020-07-12] MEDS: HYDRALAZINE HCL 100MG TABLET PO SCH ×3 (06:15→21:41)
[2020-07-12] MEDS: SODIUM CHLORIDE 0.9% INJ 3ML FLUSH IVF SCH ×3 (06:15→21:41)
[2020-07-12 07:03] LABS: BASOPHILS % 0.7 % (0.0-2.0); EOSINOPHILS % 4.1 % (0.0-5.0); HEMATOCRIT. 28.7 % (42.0-52.0); HEMOGLOBIN. 9.4 g/dL (14.0-18.0); LYMPHOCYTES % 22.4 % (20.0-50.0); MEAN CORPUSCULAR HEMOGLOBIN 27.2 pg (28.0-32.0); MEAN CORPUSCULAR VOLUME 83.3 fL (80.0-94.0); MEAN PLATELET VOLUME 10.1 fl (7.4-10.4); MONOCYTES % 7.2 % (2.0-8.0); NEUTROPHILS % 65.6 % (40.0-76.0); PLATELET 152 x1000/uL (130-400); RED BLOOD CELL COUNT 3.44 mill/uL (4.7-6.1)
[2020-07-12 08:00] VITALS: BP 131/56
[2020-07-12] MEDS: CALCIUM ACETATE 667MG CAPSULE PO SCH ×3 (08:26→18:42)
[2020-07-12] MEDS: BACITRACIN 15GM TUBE TOP SCH (09:00)
[2020-07-12] MEDS: LACTULOSE 20G/30ML UDC PO SCH (09:10)
[2020-07-12] MEDS: FAMOTIDINE 20MG TABLET PO SCH (09:10)
[2020-07-12] MEDS: THIAMINE HCL 100MG TABLET PO SCH ×2 (09:10→17:00)
[2020-07-12] MEDS: DOCUSATE SODIUM SUGAR FREE 100MG/10ML UDC NG SCH (09:12)
[2020-07-12] MEDS: METOPROLOL TARTRATE 50MG TABLET PO SCH ×2 (09:18→21:38)
[2020-07-12] MEDS: AMLODIPINE 10MG TABLET PO SCH (09:18)
[2020-07-12] MEDS: DOXAZOSIN MESYLATE 2MG TABLET PO SCH ×2 (09:18→17:00)
[2020-07-12] MEDS: ENOXAPARIN 30MG/0.3ML SYR SUBCUT SCH ×2 (09:19→21:39)
[2020-07-12] MEDS ORDERED: POTASSIUM CHLORIDE 20MEQ TABLET SR PO NR (10:45)
[2020-07-12 12:00] VITALS: BP 101/49
[2020-07-12] MEDS: INSULIN GLARGINE UD 100 UNITS/ML SYR SUBCUT SCH ×2 (12:49→21:49)
[2020-07-12 16:00] VITALS: BP 152/65
[2020-07-12 20:00] VITALS: BP 155/66
[2020-07-12] MEDS: ATORVASTATIN CALCIUM 40MG TABLET PO SCH (21:38)
[2020-07-12] MEDS: MIRTAZAPINE 15MG TABLET PO SCH (21:39)
[2020-07-13] VITALS: BP 131/86
[2020-07-13] MEDS: BLOOD SUGAR DIAGNOSTIC STRIP TEST SCH ×3 (00:09→12:44)
[2020-07-13] MEDS: METOCLOPRAMIDE HCL 10MG/2ML VIAL IV SCH ×3 (00:21→11:58)
[2020-07-13] MEDS: INSULIN LISPRO 100 UNITS/ML SUBCUT SCH ×3 (00:23→13:21)
[2020-07-13 04:00] VITALS: BP 149/69
[2020-07-13 05:44] LABS: BASOPHILS % 0.6 % (0.0-2.0); EOSINOPHILS % 3.9 % (0.0-5.0); HEMATOCRIT. 29.1 % (42.0-52.0); HEMOGLOBIN. 9.3 g/dL (14.0-18.0); LYMPHOCYTES % 27.9 % (20.0-50.0); MEAN CORPUSCULAR HEMOGLOBIN 26.7 pg (28.0-32.0); MEAN CORPUSCULAR VOLUME 83.5 fL (80.0-94.0); MEAN PLATELET VOLUME 10.6 fl (7.4-10.4); MONOCYTES % 5.6 % (2.0-8.0); PLATELET 166 x1000/uL (130-400); RED BLOOD CELL COUNT 3.48 mill/uL (4.7-6.1); RED CELL DISTRIBUTION WIDTH 14.9 % (11.6-14.6)
[2020-07-13] MEDS: CLONIDINE 0.2MG TABLET PO SCH ×2 (06:01→13:24)
[2020-07-13] MEDS: HYDRALAZINE HCL 100MG TABLET PO SCH ×2 (06:01→13:24)
[2020-07-13] MEDS: SODIUM CHLORIDE 0.9% INJ 3ML FLUSH IVF SCH ×2 (06:03→13:21)
[2020-07-13 08:00] VITALS: BP 149/61
[2020-07-13] MEDS: CALCIUM ACETATE 667MG CAPSULE PO SCH ×2 (08:43→13:20)
[2020-07-13] MEDS: DOCUSATE SODIUM 100MG CAPSULE PO PRN (08:43)
[2020-07-13] MEDS: LACTULOSE 20G/30ML UDC PO SCH (08:43)
[2020-07-13] MEDS: FAMOTIDINE 20MG TABLET PO SCH (08:43)
[2020-07-13] MEDS: THIAMINE HCL 100MG TABLET PO SCH ×2 (08:43→17:26)
[2020-07-13] MEDS: AMLODIPINE 10MG TABLET PO SCH (08:44)
[2020-07-13] MEDS: ENOXAPARIN 30MG/0.3ML SYR SUBCUT SCH (08:44)
[2020-07-13] MEDS: METOPROLOL TARTRATE 50MG TABLET PO SCH (08:44)
[2020-07-13] MEDS: BACITRACIN 15GM TUBE TOP SCH (08:45)
[2020-07-13] MEDS: DOXAZOSIN MESYLATE 2MG TABLET PO SCH ×2 (08:45→17:27)
[2020-07-13] MEDS: DOCUSATE SODIUM SUGAR FREE 100MG/10ML UDC NG SCH (08:48)
[2020-07-13] MEDS: INSULIN GLARGINE UD 100 UNITS/ML SYR SUBCUT SCH (10:16)
[2020-07-13 12:30] VITALS: BP 104/67
[2020-07-13 13:31] VITALS: BP 104/67
[2020-07-13 16:00] VITALS: BP 142/69
== END 2020-07-13 18:35 | disposition home health service (06) | DRG 720 ==
LOC: ER 04:27 → MICUSO 07:45 → EDBEDREQ 07:52 → EDBEDREQTM 07:52 → EDBEDREQSVC 07:52 → EDBEDREQ 19:27 → CVICU 06-30 10:20 → 3WST 07-03 16:47 → 6WST 07-10 10:44
PROVIDERS: ADMIT Internal Medicine; ATTEND Internal Medicine
PROC: 5A1955Z Respiratory Ventilation, Greater than 96 Consecutive Hours (ICD-10-PCS; principal; 2020-06-28)
PROC: 0BH17EZ Insertion of Endotracheal Airway into Trachea, Via Natural or Artificial Opening (ICD-10-PCS; 2020-06-28)
PROC: 05HY33Z Insertion of Infusion Device into Upper Vein, Percutaneous Approach (ICD-10-PCS; 2020-06-30)
PROC: B54MZZA Ultrasonography of Right Upper Extremity Veins, Guidance (ICD-10-PCS; 2020-06-30)
PROC: 4A00X4Z Measurement of Central Nervous Electrical Activity, External Approach (ICD-10-PCS; 2020-07-03)
PROC: 5A09357 Assistance with Respiratory Ventilation, Less than 24 Consecutive Hours, Continuous Positive Airway Pressure (ICD-10-PCS; 2020-07-03)
PROC: 5A09357 Assistance with Respiratory Ventilation, Less than 24 Consecutive Hours, Continuous Positive Airway Pressure (ICD-10-PCS; 2020-07-06)
DX: A41.9 Sepsis, unspecified organism (principal); J96.00 Acute respiratory failure, unspecified whether with hypoxia or hypercapnia; J18.9 Pneumonia, unspecified organism; E11.65 Type 2 diabetes mellitus with hyperglycemia; M62.82 Rhabdomyolysis; E46 Unspecified protein-calorie malnutrition; E66.01 Morbid (severe) obesity due to excess calories; R80.9 Proteinuria, unspecified; I16.1 Hypertensive emergency; N17.0 Acute kidney failure with tubular necrosis; E87.6 Hypokalemia; E11.10 Type 2 diabetes mellitus with ketoacidosis without coma; E78.5 Hyperlipidemia, unspecified; G93.41 Metabolic encephalopathy; D64.9 Anemia, unspecified; E11.22 Type 2 diabetes mellitus with diabetic chronic kidney disease; I12.9 Hypertensive chronic kidney disease with stage 1 through stage 4 chronic kidney disease, or unspecified chronic kidney disease; R13.10 Dysphagia, unspecified; L89.156 Pressure-induced deep tissue damage of sacral region; E11.649 Type 2 diabetes mellitus with hypoglycemia without coma; K59.00 Constipation, unspecified; E87.0 Hyperosmolality and hypernatremia; N18.9 Chronic kidney disease, unspecified; F41.9 Anxiety disorder, unspecified; Z86.73 Personal history of transient ischemic attack (TIA), and cerebral infarction without residual deficits; Z68.41 Body mass index [BMI] 40.0-44.9, adult; Z78.1 Physical restraint status
CPT/HCPCS: 36415; 36600; 70551; 71045; 76770; 76937; 80048; 80053; 80061; 80305; 80320; 81003; 82040; 82375; 82550; 82553; 82570; 82805; 82962; 83036; 83605; 83615; 83735; 83880; 84100; 84134; 84145; 84156; 84300; 84484; 85025; 85027; 86038; 86160; 86803; 87070; 87340; 87635; 92610; 93005; 93306; 93923; 94002; 94003; 94640; 94660; 95816; 96365; 97110; 97116; 97162; 97166; 97530; 97535; 99285; C1725; C9113; J0360; J0456; J0696; J1200; J1650; J1815; J1940; J2060; J2250; J2270; J2405; J2543; J2704; J2765; J3010; J3370; J3490; J7030; J7050; J7060; J7070; G0480